=== PATIENT | female | born 1980 | race Caucasian/White ===

== ENCOUNTER 2016-12-30 17:51 | Emergency (ER) | payer BC ==
[~2016-12-30] VITALS: Ht 170.2 cm; Wt 74.8 kg
--- NOTE | ~2016-12-30 | EKG ---
[address] [address] ELECTROCARDIOGRAM REPORT Name: LENNY OD Room #: DEP Nika#: [id number] Admission: 12/30/16 Attend Phys: Discharge: 12/30/16 Date of : 78 Report #: [id number] THIS REPORT FOR: //name// [facility] ED Test Date: 2016-12-30 Test Time: 17:59:20 Pat Name: LENNY DO Department: Room: Gender: F Ladies Suit Operator: radha : 1980 Requested By: Flora Hay Order Number: [id number] MD: Cory Lowe Measurements Intervals [place] Rate: 68 P: 52 IN: 156 QRS: 71 QRSD: 81 T: 31 QT: 408 QTc: 434 Interpretive Statements Sinus rhythm No previous ECG available for comparison Electronically Signed On 12-30-2016 21:23:48 CDT by Cory Lowe [email or web address] <ELECTRONICALLY SIGNED> By: Cory Lowe MD 12/30/16 2123 1759 1759 Cory Lowe MD /LIZ
[2016-12-30] MEDS ORDERED: MIRAPEX0.5 MG PO (18:08)
[2016-12-30 18:35] LABS: ABSOLUTE NEUTROPHILS 5.5 thou/uL (1.4-8.2); BASOPHILS 0.9 % (0.0-2.0); EOSINOPHILS 4.7 % (0.0-3.0); HEMATOCRIT 40.4 % (37.0-47.0); HEMOGLOBIN 13.5 gm/dL (12.0-15.0); LYMPHOCYTES 30.3 % (24.0-44.0); MCH 30.9 pg (26.0-34.0); MCHC 33.5 g/dL (28.0-37.0); MCV 92.2 fL (80.0-100.0); PLATELET COUNT 281 thou/uL (150-400); POLYS 56.1 % (36.0-66.0); RBC 4.38 mil/uL (4.20-5.00); WBC 9.7 thou/uL (4.0-11.0)
[2016-12-30 18:39] LABS: ANION GAP 8 mmol/L (7-16); BUN 14 mg/dL (7-18); CALCIUM 8.8 mg/dL (8.5-10.1); CHLORIDE 108 mmol/L (98-107); CO2 24 mmol/L (21-32); CREATININE 0.9 mg/dL (0.6-1.0); GLUCOSE 99 mg/dL (74-106); POTASSIUM 4.1 mmol/L (3.5-5.1); SODIUM 140 mmol/L (136-145)
[2016-12-30 18:40] LABS: MANUAL DIFF NO
[2016-12-30 18:47] LABS: TROPONIN-I < 0.04 ng/mL (<0.04-0.07)
[2016-12-30 19:42] VITALS: BP 115/57
== END 2016-12-30 19:43 | disposition home or self-care (01) ==
LOC: ER 17:51
PROVIDERS: Emergency Medicine
DX: R07.9 Chest pain, unspecified (principal); R53.83 Other fatigue; Z88.1 Allergy status to other antibiotic agents; Z88.8 Allergy status to other drugs, medicaments and biological substances; Z88.6 Allergy status to analgesic agent